=== PATIENT | male | born 1995 | race Asian ===

== ENCOUNTER 2024-11-04 10:32 | Emergency (ER) | payer MEDICAID, SELFPAY ==
[2024-11-04 10:35] VITALS: BP 135/95; PULSE 96; RESP 18; TEMP 36.2; O2SAT 98; BMI 25.6
--- NOTE | 2024-11-04 11:22 | ED_ITS ---
HPI - Dental/Oral General Chief complaint: Dental/Oral Stated complaint: dental pain, wisdom teeth removed yesterday Time Seen by Provider: 11/04/24 11:15 Source: patient Mode of arrival: ambulatory Limitations: no limitations History of Present Illness ED Provider: KELLY NEGRETE PA-C HPI Narrative: 29-year-old male with no significant pmhx presents to the ED today for evaluation status post wisdom tooth extraction yesterday. He reports extraction of bilateral lower wisdom teeth yesterday in [facility]. He is currently in the [employer] and was deployed out to our community for the next week. He states that he forgot both his antibiotic and pain medication back in the city and would like a new prescription for these. He tells me he was prescribed amoxicillin and motrin. Reports taking his first dose of each yesterday. Reports some aching around extraction sites. Denies any significant pain. Denies any drainage from the sites or difficulty opening his mouth. Denies neck pain ore sore throat. Denies fever, chills. No other concerns at this time. Related Data Previous Rx's ?Medication ?Instructions ?Recorded amoxicillin 500 mg tablet 500 mg PO BID 10 days #20 tabs 11/04/24 ibuprofen 800 mg tablet 800 mg PO Q8H PRN pain (scale 11/04/24 score 4-6) #30 tabs Allergies Allergy/AdvReac Type Severity Reaction Status Date / Time No Known Allergies Allergy Verified 11/04/24 10:36 Review of Systems Review of Systems: Yes all other systems are reviewed and are negative PMFSH Past Medical History Attestation statement: The following information was validated with the patient. Source: old records reviewed and nursing notes reviewed Social History Social History Advance Directives: No Advance Directives Information Provided: Yes Do you have a plan to hurt others: No Plan Physical Exam Vital Signs: Vital Signs: Last Vital Signs Temp 97.1 F 11/04/24 10:35 Pulse 96 11/04/24 10:35 Resp 18 11/04/24 10:35 BP 135/95 H 11/04/24 10:35 Pulse Ox 98 11/04/24 10:35 O2 Del Method Room Air 11/04/24 10:35 BMI result Body Mass Index 25.6 hypertensive, vitals ortherwise wnl General: Well appearing, in no acute distress. Skin: Warm, dry, intact. No rashes or lesions. Head: Normocephalic, atraumatic. EENT: Hearing is intact b/l. Conjunctiva clear. PERRLA. EOM intact. Moist mucous membranes.? + No facial edema. Tongue and lips wnl + dentition intact. tooth #32 and #17 ex tracted with intact sutures. no localized periapical swelling to ginginva. No pointing. No active bleeding/ discharge. TTP. No palpable fluctuance. + No edema to buccal mucosa + Posterior oropharynx without erythema/ edema. Uvula midline. Controlling secretions and speaking in complete sentences + No submandublar, submental or cervical LAD. no anterior neck swelling. Cardiac: Chest wall symmetric. RRR Lungs: Normal respiratory effort without accessory muscle use. CTA bilaterally Ext: Upper and lower extremities atraumatic, without tenderness, deformity, swelling or erythema Neuro: AOx3. Normal speech. Ambulating with steady gait. Psych: Appropriate mood and affect. Responds appropriately to questions. Course Course Course Narrative: Patient tells me that he was prescribed amoxicillin and Motrin. Pain was well- controlled yesterday with Motrin. He reports taking his dose of amoxicillin yesterday. He will be here over the next week as he was in the [employer]. Unable to get back to [facility] to get his prescriptions. Will send amoxicillin and Motrin to local pharmacy. Patient has remained stable throughout ED visit today. Discussed worrisome signs and symptoms and when to return to the ED. All questions answered at this time. Patient is agreeable with disposition and stable for discharge. Medical Decision Making Medical Decision Making MDM Narrative: 29-year-old male with no significant pmhx presents to the ED today for evaluation status post wisdom tooth extraction yesterday. Vital signs are stable. Afebrile. He is well-appearing and in no acute distress. on exam, dentition intact. tooth #32 and #17 extracted with intact sutures. no localized periapical swelling to ginginva. No pointing. No active bleeding/ discharge. TTP. No palpable fluctuance. No edema to buccal mucosa. Posterior oropharynx without erythema/edema. Uvula midline. Controlling secretions and speaking in complete sentences. No submandublar, submental or cervical LAD. no anterior neck swelling. Differential diagnosis includes postoperative pain. Unlikely post op infection, ludwigs angina, periapical infection, dental caries, abscess, soft tissue neck infection. Plan for disposition. Labs/ imaging not warranted at this time. Differential Diagnosis Differential Diagnoses: The differential diagnosis associated with the presentation includes As above Admission/Observation not indicated. Prescription Management I considered prescription management with: Pain Medication and Antibiotic Social Determinants Patient?s care significantly limited by Social Determinants of Health including: Other Social Determinant of Health Critical Care Time Critical Care Time Critical Care Time: No Discharge Plan Discharge Clinical Impression: S/P wisdom tooth extraction Patient Disposition: Home, Self-Care Instructions: Amoxicillin (By mouth) Additional Instructions: You were evaluated in the ED today after having two of your wisdom teeth extracted yesterday. Amoxicillin has been sent to your pharmacy. Take this twice daily for 10 days. Motrin has been sent to your pharmacy for pain. Follow up with your dentist. Return with new or worsening symptoms. In the case of an emergency call 911. Prescriptions: New amoxicillin 500 mg tablet 500 mg PO BID 10 Days Qty: 20 0RF ibuprofen 800 mg tablet 800 mg PO Q8H PRN (Reason: pain (scale score 4-6)) Qty: 30 0RF Referrals: Physician,Unknown J [Primary Care Provider] - Stand Alone Forms: Work/School Release Print Language: Barbadian
--- OUTSIDE RECORDS SUMMARY | 2024-11-04 11:25 | XMS_ITS | Continuity of Care Document ---
Author Name [facility] Organization [facility] Care Team Providers Care Powder Loader Name Role Phone [facility] Unavailable Unavailable Immunizations Combined list of available immunizations from the Department of Defense and Veterans Affairs facilities. Immunization Series Date Given Administered By Site Reaction Lot Number CVX Code Drug Service Technician Copier Status Comments Source COVID Vaccine Moderna 2020 [id number] complet ed COVID Vaccine Moderna 11/10/20 Given Ambulat ory Pharmac y COVID Vaccine Moderna 2020 [id number] complet ed COVID Vaccine Moderna 10/11/20 Given Ambulat ory Pharmac y influenza, injectable, quadrivalent- pf 2020 [id number] 150 Seqirus complet ed influenza , injectabl e, quadrival ent-pf 08/11/20 Given Ambulat ory Pharmac y varicella virus vaccine 2019 [id number] [employer] complet ed varicella virus vaccine 05/29/20 Given Ambulat ory Pharmac y measles/mumps /rubella virus vaccine 2019 [id number] [employer] complet ed measles/m umps/rube lla virus vaccine 05/29/20 Given Ambulat ory Pharmac y varicella virus vaccine 2019 [id number] 21 [employer] complet ed varicella virus vaccine 04/17/20 Given Ambulat ory Pharmac y measles/mumps /rubella virus vaccine 2019 [id number] 03 [employer] complet ed measles/m umps/rube lla virus vaccine 04/17/20 Given Ambulat ory Pharmac y adenovirus vaccine, live 2019 [id number] 143 Teva [employer] ls complet ed adenoviru s vaccine, live 04/12/20 Given Ambulat ory Pharmac y tetanus, diphtheria, acellular pertu is 2019 [id number] [employer] complet ed tetanus, diphtheri a, acellular pertussis 04/12/20 Given Ambulat ory Pharmac y meningococcal A,C,Y,W-135 (MCV4P) 2019 [id number] 114 sanofi pasteur complet ed meningoco ccal A,C,Y,W-1 35 (MCV4P) 04/12/20 Given Ambulat ory Pharmac y poliovirus vaccine, inactivated 2019 [id number] sanofi pasteur complet ed polioviru s vaccine, inactivat ed 04/12/20 Given Ambulat ory Pharmac y influenza, injectable, quadrivalent- pf 2018 [id number] 150 Seqirus complet ed influenza , injectabl e, quadrival ent-pf 07/12/19 Given Ambulat ory Pharmac y influenza, injectable, quadrivalent- pf 2018 [id number] 150 Seqirus complet ed influenza , injectabl e, quadrival ent-pf 07/12/19 Given Ambulat ory Pharmac y Results Combined list of recent chemistry, hematology and other laboratory results from Department of Defense and Veterans Affairs, ranging from 15 months to all on record, depending upon the facility. Order Name Results Value Reference Range Date Interpretation Specimen Comments Source Infectiou s Disease HIV-1/O/2 Non-Reac tive 1 (02/24/24 10:10 AM) 02/23 N Interpretiv e Data: INTERPRETAT ION: This method is a screening procedure for the detection of HIV p24 Antigen and Antibodies to HIV-1, including Group O, and/or HIV-2. NON-REACTIV E: HIV-1 antigen and HIV-1 / HIV-2 antibodies were not detected. No laboratory evidence of HIV infection. A negative test result does not exclude the possibility of exposure to or infection with HIV. HIV antibodies and/or p24 antigen may be undetectabl e in some stages of the infection and in some clinical conditions. If acute HIV infection is suspected, consider submitting another specimen to a reference laboratory for HIV-1 RNA. SCREEN REACTIVE - CONFIRMATIO N TO FOLLOW: Possible presence of HIV-1antibo dies, HIV-2 antibodies and/or HIV-1 p24 antigen. Specimen will reflex to the confirmatio n testing that fulfills the Center for Disease Control and Prevention' s HIV diagnostic algorithm. Refer to [facility] Lab Guide for additional information : [email or web address] x Testing performed by [id number] [facility] Miscellan eous Sendouts Repository Sample Received (02/24/24 10:10 AM) 02/23 N [id number] Encounters Combined list of: 1) Encounters from [facility] facilities going backup to the last 18 months, not all [place] inpatient encounters are included; 2) Encounters from the [facility] facilities going backup to 280 months. Location Location Details Encounter Type Encounter Number Reason For Visit Attending Provider ADM Date DC Date Status Disposition Source [id number] [facility] [id number] YADI JCONDON 07/09 Discharge Disposition: Home or Self Care [id number] [id number] [facility] [id number] [facility] [id number] YADI JCONDON 08/12 Discharge Disposition: Home or Self Care [id number] [id number] [facility] [id number] [facility] [id number] YADI JCONDON 09/02 Discharge Disposition: Home or Self Care 8344R-4 39 [facility] [id number] [facility] [id number] YADI JCONDON 09/30 Discharge Disposition: Home or Self Care 8344R-4 39 [facility] [id number] [facility] [id number] MEGAN MYDOAN 11/04 Discharge Disposition: Home or Self Care 8344R-4 39 [facility] Procedures Combined list of: 1) Procedures from [facility] facilities going back up to thelast 18 months, not all [place] non-surgical procedures are included; 2) All procedures from the [facility] facilities. Procedure Procedure Type Code Date Perfomer Comments Sourc e No data available for this section Ambulatory P harmacy Social History Combined list of available smoking, tobacco, and other social history from [facility] facilities. Social History Type Response Date Comment Sourc e Sex Representation Male (finding) 05/29/2021 Un known Organization Sexual Orientation Ambula tory Pharmacy Gender identity Ambulator y Pharmacy Assessment and Plan Combined list of future care activities from [facility] of Defense and Veterans Affairs facilities (e.g., assessment and plan notes, appointments, orders, and referrals). Additional future care activities may be listed in the Plan of Care section. Result Assessment and Plan Date Source Assessment and Plan Future Appointments Appointment Date: 11/04/2024 08:20:00 AM Scheduled Provider: Location: [address] [place] [address] Appointment Type: Dental Visit 11/04/2024 Ambulatory Pharmacy Functional Status Combined list of recent functional and cognitive assessments recorded at [facility] Functional [place] Measurement (FIM) Scale: 1 = Total Assistance (Subject = 0% +), 2 = Maximal Assistance (Subject = 25% +), 3 = Moderate Assistance (Subject = 50% +), 4 = Minimal Assistance (Subject = 75% +), 5 = Supervision, 6 = Modified Oakley (Device), 7 = Complete Oakley (Timely, Safely). Assessment Date/Time Source Assessment Type Assessment Skill Assessment Score Assessment Details No data available for this section
--- OUTSIDE RECORDS SUMMARY | 2024-11-04 11:25 | XMS_ITS | Data Portability ---
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 Plan of Treatment Reminders Order Date Submit Date Provider Last Modified By Organization Details Last Modified Time Details Appointments None recorded. Lab rapid strep group A, throat 2022 023 [facility], [address] [place] [address], [id number], 3 15:20:38 culture, throat 2022 023 [facility], [address] [place], [address], 3 07:29:37 rapid SARS CoV 2 Ag, QL IA, respiratory specimen 2022 023 [facility] [place], [address] [place], [address], 3 15:20:38 Referral None recorded. Procedures None recorded. Surgeries None recorded. Imaging XR, foot, 3 or more view - PE: pain in the foot on the side of the big toe. Eval for: fracture. 2023 024 [facility], [address] [facility], [place], [address], 4 17:28:42 Medication Orders indomethaci n 25 mg capsule 2023 024 leroy [facility] #[id number], [address] [place], [address], 4 18:37:04 doxycycline hyclate 100 mg capsule 2022 024 MARTY [facility] #[id number], [address] [place], [address], 4 16:42:01 Patient TargetsNo targets recorded. Patient Instructions Encounter Date Encounter Id Patient Instructions Last Modified By Organization Details Last Modified Time 07/02/2023 [id number] A healthy lifestyle: care instructions [email or web address] Not available 07/02/2023 15:20:38 Thank you for visiting [facility]. We may be calling you to review your lab results or schedule a follow up appointment. The call will be through an automated system which asks you to press a travis to speak with one of our agents. Please be on the lookout for this call and listen to the message in its entirety. You may also view your lab results using the [employer] jossy, available in the Joss[employer] Store and Google Play. First-time jossy users will need to create an account; please note you? l l need to select a login and password for the jossy versus just using your patient portal login. Your lab results will be posted to the [employer] jossy as soon as they? r e available. If you have any questions regarding your visit, our Aftercare department can be reached at [phone]. Our hours are Wednesday ? Wednesday from 8 am ? 11 pm or Wednesday/Wednesday from 9a ? 8p. Take OTC Robitussin, saline nasal spray and Marybeth/Claritin for symptoms. Test Name: SARS-CoV-2 rapid ag (COVID-19); Result: NEGATIVE Your test today for COVID-19 infection was NEGATIVE. The next steps in your care depend on your whether you are having symptoms or had an exposure to Covid-19: NOTE: an EXPOSURE is defined as spending more than 10 minutes (within a 24 period) within an enclosed space with an individual who tested positive for Covid-19 If NO EXPOSURE to COVID-19: If you are ASYMPTOMATIC and NO KNOWN EXPOSURE: You are cleared to go back to work or school since you have no symptoms suggestive of COVID-19, have not had a high risk exposure to a person known to have COVID-19, and your Rapid Covid Test result is negative. If you have SYMPTOMS with NO KNOWN EXPOSURE to COVID-19: Your medical provider may have sent a second test to an outside lab to confirm that today s test was truly negative. The results of this second test (PCR technique) will be published to your [facility] patient portal ([email or web address] ) as soon as they are available (3-5 days on average). For now, we ask that you go home under strict QUARANTINE, monitor for any worsening symptoms and return for re-evaluation if your symptoms become severe. If HIGH-RISK EXPOSURE: FULLY VACCINATED: If you are fully vaccinated and boosted (with the booster at least 2 weeks before the first date of exposure) or you are not yet eligible for a booster, NO QUARANTINE IS REQUIRED. You should wear a well-fitting mask while aroundothers for 10 days after the last date of exposure. NOT FULLY VACCINATED (including vaccinated and eligible for a booster but not yet boosted): You should QUARANTINE for 5 DAYS, then wear a well-fitting mask while around others for an additional 5 days. It is recommended that you TEST at DAY 5 if possible (either PCR or Rapid Antigen) If you DEVELOP SYMPTOMS: QUARANTINE and SEEK TESTING. In this situation, quarantine would end when the test is negative. If testing is not done, isolate according to the guidance above (Vaccinated vs NOT-Vaccinated). Be Safe MONITOR YOUR SYMPTOMS : If at any point your symptoms become worse or severe such as fever that will not improve with medicine, shortness of breath, chest pain or discomfort, abdominal pain, inability to tolerate eating and drinking, please return to [facility] or go to the closest Emergency Room. QUARANTINE INFO : If you were asked to quarantine yourself, please stay in your own part of the house away from everyone else, using your own bedroom and bathroom, if possible. If you need to be in a common area ensure that both you and anyone else around you is wearing a mask.You will be considered free of contagious COVID-19 10 days after your symptoms began ? if your symptoms have significantly improved and you have not had a fever for at least 24 hours (without using fever reducing medications like acetaminophen or ibuprofen). Please continue to follow all personal safety practices when outside the home, including (a) wearing a nose and mouth covering at all times when around people outside of your household, (b) social distancing, (c) hand hygiene, and (d) avoidance of contact with people with known or possible COVID-19. [email or web address] Not available 07/02/2023 14:53:02 10/07/2023 [id number] A healthy lifestyle: care instructions [email or web address] Not available 10/07/2023 17:04:05 Thank you for visiting [facility]. We may be calling you to review your lab results or schedule a follow up appointment. The call will be through an automated system which asks you to press a travis to speak with one of our agents. Please be on the lookout for this call and listen to the message in its entirety. You may also view your lab results using the [employer] jossy, available in the [employer]oss[employer] Store and Google Play. First-time jossy users will need to create an account; please note you? l l need to select a login and password for the jossy versus just using your patient portal login. Your lab results will be posted to the [employer] jossy as soon as they? r e available. If you have any questions regarding your visit, our Aftercare department can be reached at [phone]. Our hours are Wednesday ? Wednesday from 8 am ? 11 pm or Wednesday/Wednesday from 9a ? 8p. Foot Pain Your Care Instructions Foot injuries that cause pain and swelling are fairly common. Almost all sports or home repair projects can cause a misstep that ends up as foot pain. Normal wear and tear, especially as you get older, also can cause foot pain. Most minor foot injuries will heal on their own, and home treatment is usually all you need to do. If you have a severe injury, you may need tests and treatment. Follow-up care is a travis part of your treatment and safety. Be sure to make and go to all appointments, and call your doctor if you are having problems. It s also a good idea to know your test results and keep a list of the medicines you take. How can you care for yourself at home? Take pain medicines exactly as directed. If the doctor gave you a prescription medicine for pain, take it as prescribed. If you are not taking a prescription pain medicine, ask your doctor if you can take an auhp-sko-otkyxvr medicine. Rest and protect your foot. Take a break from any activity that may cause pain. Put ice or a cold pack on your foot for 10 to 20 minutes at a time. Put a thin cloth between the ice and your skin. Prop up the sore foot on a pillow when you ice it or anytime you sit or lie down during the next 3 days. Try to keep it above the level of your heart. This will help reduce swelling. Your doctor may recommend that you wrap your foot with an elastic bandage. Keep your foot wrapped for as long as your doctor advises. If your doctor recommends crutches, use them as directed. Wear roomy footwear. As soon as pain and swelling end, begin gentle exercises of your foot. Your doctor can tell you which exercises will help. When should you call for help? Call 911 anytime you think you may need emergency care. For example, call if: Your foot turns pale, white, blue, or cold. Call your doctor now or seek immediate medical care if: You cannot move or stand on your foot. Your foot looks twisted or out of its normal position. Your foot is not stable when you step down. You have signs of infection, such as: Increased pain, swelling, warmth, or redness. Red streaks leading from the sore area. Pus draining from a place on your foot. A fever. Your foot is numb or tingly. Watch closely for changes in your health, and be sure to contact your doctor if: You do not get better as expected. You have bruises from an injury that last longer than 2 weeks. [email or web address] Not available 10/07/2023 17:28:04 Reason for Referral None Reported. Results Created Date Observation Date Name Description Value Unit Range Abnormal Flag Note LastModifiedBy Organization Detail LastModifiedTime 07/02/2007/05/2023 CULTU RE THROA T culture, throat SEE NOTE CULTU RE, THROA T Micro Numbe r: [id number] Test Statu s: Final Speci men Sourc e: Throa t Speci men Quali ty: Adequ ate Resul t: No oroph aryng eal patho gens recov ered. Not Available [facility] [address] [facility], [place], [address], 07/05/2023 07:29:37 07/02/20 23 07/02/2023 rapid strep group A, throa t Group A Strep NEGATI VE Not Available [facility] [address] [place], [address], 07/02/2023 14:34:21 07/02/20 23 07/02/2023 rapid SARS CoV 2 Ag, QL IA, respi rator y speci men Covid-19 NEGATI VE Not Available [facility] [address] [place], [address], 07/02/2023 14:34:19 10/07/19 24 10/07/2023 XR, foot, 3 or more view No observ ation record ed. [facility] [address] [facility], [place], [address], 10/07/2023 17:30:19 Result Notes None recorded. Problems No Known Problems Procedures Surgical History None recorded. Imaging Results Imaging Date Name Status LastModified by Organiz ation Details LastModified Time 10/07/2023 XR, foot, 3 or more view completed [facility] [address] [facility], [place], [address], 10/07/2023 17:30:19 Procedure Notes None recorded. Medical Equipment None Reported. Allergies No known drug allergies Medications Name Sig Start Date Stop Date Status Note LastModified by Organization Details LastModified Time indomethacin 25 mg capsule Take 1 capsule 3 times a day by oral route as needed for 10 days. 2023 active Not Available Not Available Not Jack labwaqar Vitals Date Recorded Body height Body mass index (BMI) Body weight Heart rate Body temperature Respiratory rate Oxygen saturation Oxygen saturation in Arterial blood by Pulse oximetry Systolic blood pressure Diastolic blood pressure Provider Name and Address Organization Details Last Updated DateTime 3 170.18 cm 25.1 kg/m2 53344.7 8 g 88 /min 98.9 [degF] 16 /min 98 % 98 % 139 mm[Hg] 87 mm[Hg] Luci Muhammad [place] - .[facility] 3 14:32:04 Date Recorded Body height Respiratory rate Body mass index (BMI) Body weight Body temperature Oxygen saturation Oxygen saturation in Arterial blood by Pulse oximetry Heart rate Systolic blood pressure Diastolic blood pressure Provider Name and Address Organization Details Last Updated DateTime 4 170.18 cm 16 /min 25.1 kg/m2 38859.7 8 g 98.4 [degF] 98 % 98 % 101 /min 117 mm[Hg] 77 mm[Hg] Nayeli Phillips [place] - .[facility] 4 16:45:08 Social History None recorded. Functional Status None recorded. Mental Status None recorded. Family History Relationship Description Onset Age of this Age Resolved Age Notes LastModified by Organization Details LastModified Time Father No current problems or disability [email or web address] Not available 07/02 14:32:54 Mother No current problems or disability [email or web address] Not available 07/02 14:32:54 Medical History No medical history recorded. Past Encounters Encounter ID Performer Location Encounter Start Date Encounter Closed Date Diagnosis/Indication Diagnosis SNOMED-CT Code Diagnosis ICD10 Code Diagnosis [id number] [facility] [address] [place] [address] 07/02/2023 13:59:14 07/02/2023 14:53:44 Exposure to SARS-CoV-2 512731156 Z20.822 Viral syndrome 833729206 B34.9 [id number] [place] [address] [place] [address] 10/07/2023 16:36:07 10/07/2023 17:28:42 Pain in left foot 3719618608 29034 M79.672 Bunion 241658349 M21.61 9 Health Concerns Section Related Observation LastModified by Organization Detai ls LastModified Time None Recorded Concern Status LastModified by Organization Details LastModified Time None Recorded Advance Directives Directive None Recorded Payers Encounter Date Sequence Insurance Name Policy Number Policy Douglas Covered Member ID Douglas Member ID Guarantor Name 07/02/2023 1 [facility] FROM [facility] Dhruv Schmitt [id number] Dhruv Keshia 10/07/2023 1 [employer]ET[employer] FROM [facility] Dhruv Schmitt [id number] Anisawaqar Schmitt Notes Date Note Type Note Provider Name and Address Organization Details Recorded Time 07/02/2023 text/html COVID-19 VISIT - cmdReported bypatient.Patient presents forCOVID-19 VISIT(27yo male presents w. cough, nasal congestion, and sore throat x 3d ago. Reports taking OTC Nyquil w. minimal relief and states sxs are the same since onset. Denies exp. to sick contacts.) Pertinent findings:No fever; NO body aches; No CP; No leg swelling; No neurologic deficits; No SOB;(+) sore throat;(+) nasal discharge/congestion ;(+) cough COVID-19 exposureNO known recent exposure to COVID-19; (+) URI SYMPTOMS - possible COVID-19 infection COVID vaccination status:(+) COVID Vaccination Moderna and HAS been > 2 weeks since the FINAL scheduled dose Employer / School informationNOT in school; NOT volunteering;(+) WORKING (name, address, phone?): Claudio Haque MD [address] [place] [address],[facility], [place], [address], [facility] - .[facility] 07/02/2023 15:19:49 10/07/2023 text/html Toe 1st complain t - cmdReported bypatient.Patient presents with:left Toe 1st complaint which began 4-6 days ago(Pt c/o left great toe pain for the past 4 days with no known trauma or injury. Pt reports hx of a bunion on bilateral feet.) Pertinent findings:No leg pain; No hip pain; No recent fracture or orthopedic surgery; No leg swelling; No oral contraceptive use; No recent period of extended immobilization; No family history of blood clots; No chest pain or shortness of breath; No concerning history of STD; No extremity numbness and weakness; No tick bite;(+) pain with ROM(Hurts when he walks. Pain in the base of the big toe.) Tetanus status:Tetanus status: not up to date Diego Cancino MD [address] [place] [address],[address], [place], [address], [facility] - .[facility] 10/07/2023 17:33:13
[2024-11-04 11:36] VITALS: BP 131/86; PULSE 84; RESP 16; TEMP 37; O2SAT 98
[2024-11-04] MEDS: Amoxicillin 500 MG CAPSULE PO (11:46)
[2024-11-04] MEDS: Ibuprofen 600 MG TABLET PO (11:46)
[2024-11-04 11:50] VITALS: BP 131/86; PULSE 84; RESP 16; TEMP 37; O2SAT 98
== END 2024-11-04 11:50 | disposition home or self-care (01) ==
PROVIDERS: Emergency Provider Emergency Medicine Emergency Medical Services
DX: G89.18 Other acute postprocedural pain (principal); Z98.818 Other dental procedure status
CPT/HCPCS: 99283